=== PATIENT | female | born 1990 | race Caucasian/White ===

== ENCOUNTER 2017-01-20 12:44 | Emergency (ER) | payer OTHER ==
[~2017-01-20 12:44] MED LIST: HYDR-971 PO; ONDA4TAB10 PO; PNV1TABL25 PO
[2017-01-20 12:46] VITALS: BP 115/68
[2017-01-20] MEDS ORDERED: ACETAMINOPHEN 500 MG TABLET PO ONE (13:15)
[2017-01-20] MEDS ORDERED: CYCLOBENZAPRINE 10 MG TABLET. PO ONE (13:15)
--- NOTE | 2017-01-20 17:36 | ED.ADGEN ---
Past History Past Medical History: No Pertinent History Past Surgical History: Alcohol Use: None Drug Use: None Adult General Chief Complaint Chief Complaint Right flank pain HPI HPI Patient is a 26-year-old male presents with persistent right flank pain for the past 10 days. Patient was seen in the emergency department 7 days ago for the same. At that time she underwent an extensive evaluation including CT abdomen pelvis which was normal, and pelvic ultrasound showed good blood flow to both ovaries and right ovarian cyst. Patient denies increased urinary frequency urgency, abdominal pain or tenderness. Pain is worse with palpation in trunk rotation. No other acute symptoms or complaints. Patient has not followed up with her PCP. Review of Systems Review of Systems ROS as per HPI. Current Medications Current Medications Current Medications Medications (Trade) Dose Ordered Sig/Sancho Start Time Stop Time Status Last Admin Dose Admin Acetaminophen (Tylenol) 500 mg 1X ONCE 01/20/17 13:15 01/20/17 13:22 DC 01/20/17 13:18 500 MG Cyclobenzaprine HCl (Flexeril) 10 mg 1X ONCE 01/20/17 13:15 01/20/17 13:22 DC 01/20/17 13:18 10 MG Allergies Allergies Allergies Coded Allergies Type Severity Reaction Last Updated Verified adhesive Allergy Intermediate 07/02/16 Yes coconut oil Allergy Intermediate Rash 07/02/16 Yes Physical Exam Physical Exam Constitutional: Well developed, well nourished, no acute distress, non-toxic appearance. HENT: Normocephalic, atraumatic, bilateral external ears normal, oropharynx moist, no oral exudates, nose normal. Eyes: PERRLA, EOMI, conjunctiva normal, no discharge. Abdomen: Bowel sounds normal, soft, no tenderness. Skin: Warm, dry, no erythema, no rash. Back: No midline tenderness or CVA tenderness. Right lateral lumbar paravertebral tenderness, reproduces with palpation, trunk rotation Extremities: No tenderness, no cyanosis, no clubbing, ROM intact, no edema. Neurologic: Alert and oriented X 3, normal motor function, normal sensory function, no focal deficits noted. Psychologic: Affect normal, judgement normal, mood normal. Current Patient Data Vital Signs Vital Signs Date Time Temp Pulse Resp B/P Pulse Ox O2 Delivery O2 Flow Rate FiO2 01/20/17 12:46 98.0 84 18 96 Room Air EKG EKG [] Radiology/Procedures Radiology/Procedures [] Impressions: Right flank pain Course & Med Decision Making Course & Med Decision Making Pertinent Labs and Imaging studies reviewed. (See chart for details) [ReView of labs, studies, exam was consistent with musculoskeletal back pain. Recommend PCP follow-up with supportive care.] Final Impression Final Impression [1. Right flank pain] Problems: Dragon Disclaimer Dragon Disclaimer This electronic medical record was generated, in whole or in part, using a voice recognition dictation system. PIERCE LYONS DO Jan 20, 2017 17:36
== END 2017-01-20 13:21 | disposition home or self-care (01) ==
LOC: ER 12:44
DX: R10.9 Unspecified abdominal pain (principal); M54.89 Other dorsalgia; Z88.8 Allergy status to other drugs, medicaments and biological substances; Z91.048 Other nonmedicinal substance allergy status
CPT/HCPCS: 99283

== ENCOUNTER → 2017-02-09 | Outpatient (CLI) | payer OTHER ==
[2017-01-20 12:46] VITALS: BP 115/68
--- NOTE | 2017-02-09 11:10 | RAD ---
Transabdominal and endovaginal pelvic ultrasound History: Follow-up right ovarian cyst. Comparison: Ultrasound pelvis 12/19/2016. Technique: Transabdominal imaging was performed to evaluate optimally the uterine fundus. Endovaginal imaging was performed to evaluate optimally the endometrial stripe and lower uterine segment. Findings: Transabdominal imaging: The uterus measures 8.9 cm in length. Uterus has an unremarkable appearance. The endometrial stripe measures 3 mm, within normal limits. Right ovary measures 3.6 x 2.6 x 3.2 cm and demonstrates dominant cyst/follicle measuring 2.5 cm in maximum dimension (previously 3.6 cm). Left ovary measures 1.8 x 1.5 x 2.2 cm and is unremarkable. No adnexal masses are seen. Both ovaries demonstrate normal vascular flow by Doppler interrogation and are without evidence of torsion. Endovaginal imaging: The uterus measures 7.3 cm in length. Uterus has an unremarkable appearance. The endometrial stripe measures 5 mm, within normal limits. Right ovary measures 3.3 x 3.2 x 3.2 cm and demonstrates dominant cyst measuring 3.1 cm with mild amount of hemorrhage product. Left ovary is not seen with transabdominal imaging. No adnexal masses are seen. Impression: 1. Interval reduction in size of small left hemorrhagic functional ovarian cyst.
== END | disposition home or self-care (01) ==
LOC: US 09:25
DX: N83.201 Unspecified ovarian cyst, right side (principal); R10.31 Right lower quadrant pain
CPT/HCPCS: 76830; 76856

== ENCOUNTER 2017-04-05 11:53 | Emergency (ER) | payer OTHER ==
[~2017-04-05] VITALS: Ht 160 cm; Wt 95.3 kg
[2017-04-05 12:26] LABS: BILIRUBIN,URINE NEG (NEG); CLARITY,URINE HAZY; COLOR,URINE YELLOW; GLUCOSE,URINE NEG (NEG)
--- NOTE | 2017-04-05 12:26 | ED.ADGEN ---
Past History Past Medical History: No Pertinent History Past Surgical History: Alcohol Use: None Drug Use: None Adult General HPI HPI Patient is a 26-year-old woman, history of a , who presents to the emergency department with a complaint of nausea, vomiting and abdominal cramping intermittently over the past week. Patient states that she is experiencing nearly constant nausea, with emesis with most things that she eats or drinks. She states that she is also having cramping abdominal pain in the lower abdomen. Denies any diarrhea, states her last bowel was yesterday and it was normal. No blood or bile in emesis. Patient denies any upper abdominal discomfort. Denies any sick contacts or exposures, any injuries, no fevers, no chills, no flank pain, no complaints, no similar symptoms previously. She has not tried any medications at home for the symptoms. Is concerned that she might possibly be , is 6 months , baby is bottle fed. Patient' s and child are present with her in the emergency department. Review of Systems Review of Systems Constitutional: Denies fever or chills [] Eyes: Denies change in visual acuity, redness, or eye pain [] HENT: Denies nasal congestion or sore throat [] Respiratory: Denies cough or shortness of breath [] Cardiovascular: No additional information not addressed in HPI [] GI: Denies bloody stools or diarrhea, complaining of cramping lower quadrant abdominal pain, associated with nausea and vomiting. [] : Denies dysuria or hematuria [] Musculoskeletal: Denies back pain or joint pain [] Integument: Denies rash or skin lesions [] Neurologic: Denies headache, focal weakness or sensory changes [] Endocrine: Denies polyuria or polydipsia [] Current Medications Current Medications Current Medications Medications (Trade) Dose Ordered Sig/Sancho Start Time Stop Time Status Last Admin Dose Admin Ketorolac Tromethamine (Toradol) 10 mg 1X ONCE 04/05/17 12:45 04/05/17 12:46 DC 04/05/17 12:50 10 MG Ondansetron HCl (Zofran) 4 mg 1X ONCE 04/05/17 12:45 04/05/17 12:46 DC 04/05/17 12:38 4 MG Sodium Chloride 1,000 ml @ 1,000 mls/hr Q1H 04/05/17 12:45 04/05/17 13:44 04/05/17 12:39 1,000 MLS/HR Allergies Allergies Allergies Coded Allergies Type Severity Reaction Last Updated Verified adhesive Allergy Intermediate 07/02/16 Yes coconut oil Allergy Intermediate Rash 07/02/16 Yes Physical Exam Physical Exam Constitutional: Well developed, well nourished, no acute distress, non-toxic appearance. [] HENT: Normocephalic, atraumatic, bilateral external ears normal, oropharynx moist, no oral exudates, nose normal. [] Eyes: PERRLA, EOMI, conjunctiva normal, no discharge. [] Neck: Normal range of motion, no tenderness, supple, no stridor. [] Cardiovascular:Heart rate regular rhythm, no murmur, S1, S2, no rubs or gallops. [] Lungs & Thorax: Bilateral breath sounds clear to auscultation, no wheezing, rhonchi, rales. No chest wall tenderness or crepitus. [] Abdomen: Bowel sounds normal, soft, obese, mild tenderness to palpation in lower abdominal region, left and right side, and suprapubic, no tenderness at McBurney's point, no upper abdominal tenderness to palpation, no rebound, rigidity, no guarding, no masses, no pulsatile masses. [] Skin: Warm, dry, no erythema, no rash. [] Back: No tenderness, no CVA tenderness. [] Extremities: No tenderness, no cyanosis, no clubbing, ROM intact, no edema. [] Neurologic: Alert and oriented X 3, normal motor function, normal sensory function, no focal deficits noted. [] Psychologic: Affect normal, judgement normal, mood normal. [] Current Patient Data Vital Signs Vital Signs Date Time Temp Pulse Resp B/P (MAP) Pulse Ox O2 Delivery O2 Flow Rate FiO2 04/05/17 12:03 98.4 78 17 100 Room Air Lab Results Laboratory Tests Test 04/05/17 12:10 04/05/17 12:35 Urine Collection Type Unknown Urine Color Yellow Urine Clarity Hazy Urine pH 7.0 Urine Specific [place] 1.020 Urine Protein Trace (NEG-TRACE) Urine Glucose (UA) Neg mg/dL (NEG) Urine Ketones (Stick) Neg mg/dL (NEG) Urine Blood Trace (NEG) Urine Nitrite Neg (NEG) Urine Bilirubin Neg (NEG) Urine Urobilinogen Dipstick 0.2 mg/dL (0.2 mg/dL) Urine Leukocyte Esterase Neg (NEG) Urine RBC 3-5 /HPF (0-2) Urine WBC 1-4 /HPF (0-4) Urine Squamous Epithelial Cells Many /LPF Urine Bacteria Mod /HPF (0-FEW) Urine Hyaline Casts Occ /HPF Urine Mucus Mod /LPF White Blood Count 8.2 x10^3/uL (4.0-11.0) Red Blood Count 4.58 x10^6/uL (3.50-5.40) Hemoglobin 12.5 g/dL (12.0-15.5) Hematocrit 38.6 % (36.0-47.0) Mean Corpuscular Volume 84 fL (79-100) Mean Corpuscular Hemoglobin 27 pg (25-35) Mean Corpuscular Hemoglobin Concent 33 g/dL (31-37) Red Cell Distribution Width 14.5 % (11.5-14.5) Platelet Count 276 x10^3/uL (140-400) Neutrophils (%) (Auto) 59 % (31-73) Lymphocytes (%) (Auto) 29 % (24-48) Monocytes (%) (Auto) 10 % (0-9) H Eosinophils (%) (Auto) 1 % (0-3) Basophils (%) (Auto) 0 % (0-3) Neutrophils # (Auto) 4.8 x10^3uL (1.8-7.7) Lymphocytes # (Auto) 2.3 x10^3/uL (1.0-4.8) Monocytes # (Auto) 0.8 x10^3/uL (0.0-1.1) Eosinophils # (Auto) 0.1 x10^3/uL (0.0-0.7) Basophils # (Auto) 0.0 x10^3/uL (0.0-0.2) Sodium Level 143 mmol/L (136-145) Potassium Level 4.4 mmol/L (3.5-5.1) Chloride Level 107 mmol/L (98-107) Carbon Dioxide Level 27 mmol/L (21-32) Anion Gap 9 (6-14) Blood Urea Nitrogen 11 mg/dL (7-20) Creatinine 0.8 mg/dL (0.6-1.0) Estimated GFR (Cockcroft-Gault) 86.0 BUN/Creatinine Ratio 14 (6-20) Glucose Level 86 mg/dL (70-99) Calcium Level 8.8 mg/dL (8.5-10.1) Total Bilirubin 0.3 mg/dL (0.2-1.0) Aspartate Amino Transferase (AST) 15 U/L (15-37) Alanine Aminotransferase (ALT) 21 U/L (14-59) Alkaline Phosphatase 70 U/L (46-116) Total Protein 7.9 g/dL (6.4-8.2) Albumin 3.5 g/dL (3.4-5.0) Albumin/Globulin Ratio 0.8 (1.0-1.7) L Lipase 180 U/L (73-393) EKG EKG Not indicated. [] Radiology/Procedures Radiology/Procedures [][address] [address] IMAGING REPORT Signed PATIENT: ANDRES ORANTES ACCOUNT: [id number] : 1990 LOCATION: ER AGE: 26 SEX: F EXAM STATUS: REG ER ORD. PHYSICIAN: REILLY DOLL DO REASON: abd pain/n/v PROCEDURE: ACUTE ABDOMEN SERIES Three-view acute abdominal series. History: Nausea and vomiting, double pain 3 views were taken for acute abdominal series. Lungs are clear. Heart is normal in size. There is no effusion. There is no free air on the upright view of the abdomen or abnormal air-fluid levels. There is slight scoliosis. There is no bowel obstruction. There are no abnormal calcifications. Impression: 1. No bowel obstruction or acute finding noted in the abdomen. 2. No acute infiltrates. DICTATED AND SIGNED BY: MIGUELINA PINEDA MD DATE: 04/05/17 1300 CC: ARMANDO VILLALOBOS; REILLY DOLL DO ~ Course & Med Decision Making Course & Med Decision Making Pertinent Labs and Imaging studies reviewed. (See chart for details) Patient's hCG negative in the emergency department. Abdomen is soft, minimally tender, nondistended with active bowel sounds. Patient received IV fluids, and Zofran in the emergency department, along with Toradol, with improvement of symptoms. No vomiting in the ED. Obstruction series reveals no evidence of obstruction or other concerning findings, laboratory studies are unremarkable. I did discuss the signs and patient at bedside, reiterated the patient may be experiencing a viral illness. We did discuss dietary recommendations, patient states this point she is eating ice cream and some other foods without issue, I recommend avoiding ice cream, and trying more bland foods, and reiterated the importance of staying well-hydrated. Patient is given prescription for Zofran and for Bentyl, discussed follow-up with her primary care provider symptoms persist for the next 48 hours, and concerning symptoms that would prompt immediate return to the emergency department for additional evaluation. Patient voiced understanding and agreement with plan as stated, discharged home in stable condition with prescriptions and instructions with plan as above. Final Impression Final Impression [] Problems: Dragon Disclaimer Dragon Disclaimer This electronic medical record was generated, in whole or in part, using a voice recognition dictation system. Departure: Impression: Primary Impression: Nausea and vomiting Additional Impression: Abdominal pain Disposition: 01 HOME, SELF-CARE Condition: STABLE Scripts Dicyclomine Hcl (BENTYL) 10 Mg Capsule 10 MG PO QIDAFTMEAL Y for PAIN, #20 CAP Prov: REILLY DOLL DO 04/05/17 Ondansetron Hcl (ZOFRAN) 4 Mg Tablet 1 TAB PO PRN Q6-8HRS, #12 TAB Prov: REILLY DOLL DO 04/05/17 REILLY DOLL DO April 05, 2017 12:26
[2017-04-05 12:27] LABS: BACTERIA,URINE MOD /HPF (0-FEW); NITRITE,URINE NEG (NEG); UROBILINOGEN,URINE 0.2 mg/dL (0.2 mg/dL)
[2017-04-05 12:28] LABS: HYALINE CASTS, URINE OCC /HPF; SQUAMOUS EPITHELIAL CELL,UR MANY /LPF
[2017-04-05] MEDS ORDERED: ONDANSETRON PF 4 MG/2 ML VIAL. IV ONE (12:45)
[2017-04-05] MEDS ORDERED: KETOROLAC 15 MG/ML VIAL. IV ONE (12:45)
[2017-04-05] MEDS ORDERED: IV NORMAL SALINE 1,000ML 1,000 ML IV SCH (12:45)
[2017-04-05 12:53] LABS: BASO % 0 % (0-3); EOS # 0.1 x10^3/uL (0.0-0.7); EOS % 1 % (0-3); HEMATOCRIT 38.6 % (36.0-47.0); HEMOGLOBIN 12.5 g/dL (12.0-15.5); LYMPH # 2.3 x10^3/uL (1.0-4.8); LYMPH % 29 % (24-48); MEAN CORPUSCULAR HEMOGLOBIN 27 pg (25-35); MEAN CORPUSCULAR HGB CONC 33 g/dL (31-37); MEAN CORPUSCULAR VOLUME 84 fL (79-100); MONO # 0.8 x10^3/uL (0.0-1.1); MONO % 10 % (0-9); NEUT # 4.8 x10^3uL (1.8-7.7); NEUT % 59 % (31-73); PLATELET COUNT 276 x10^3/uL (140-400); RED BLOOD COUNT 4.58 x10^6/uL (3.50-5.40); RED CELL DISTRIBUTION WIDTH 14.5 % (11.5-14.5); WHITE BLOOD COUNT 8.2 x10^3/uL (4.0-11.0)
[2017-04-05 13:03] LABS: ALBUMIN 3.5 g/dL (3.4-5.0); ALBUMIN/GLOBULIN RATIO 0.8 (1.0-1.7); CALCIUM 8.8 mg/dL (8.5-10.1); CREATININE 0.8 mg/dL (0.6-1.0); POTASSIUM 4.4 mmol/L (3.5-5.1); TOTAL BILIRUBIN 0.3 mg/dL (0.2-1.0); TOTAL PROTEIN 7.9 g/dL (6.4-8.2)
--- NOTE | 2017-04-05 13:05 | RAD ---
Three-view acute abdominal series. History: Nausea and vomiting, double pain 3 views were taken for acute abdominal series. Lungs are clear. Heart is normal in size. There is no effusion. There is no free air on the upright view of the abdomen or abnormal air-fluid levels. There is slight scoliosis. There is no bowel obstruction. There are no abnormal calcifications. Impression: 1. No bowel obstruction or acute finding noted in the abdomen. 2. No acute infiltrates.
[2017-04-05] MEDS ORDERED: ONDA4TAB7 PO (13:09)
[2017-04-05] MEDS ORDERED: DICY10CA53 PO (13:09)
[2017-04-05 13:24] VITALS: BP 115/74
== END 2017-04-05 13:25 | disposition home or self-care (01) ==
LOC: ER 11:53
DX: R10.30 Lower abdominal pain, unspecified (principal); R11.2 Nausea with vomiting, unspecified; Z91.048 Other nonmedicinal substance allergy status; Z98.890 Other specified postprocedural states; Z88.8 Allergy status to other drugs, medicaments and biological substances
CPT/HCPCS: 36415; 74022; 80053; 81001; 83690; 84703; 85027; 96361; 96374; 96375; 99285; J1885; J2405; 81025; J7030

== ENCOUNTER 2017-07-16 14:45 | Emergency (ER) | payer OTHER ==
[~2017-07-16] VITALS: Ht 167.6 cm; Wt 100.2 kg
[~2017-07-16 14:45] MED LIST changes: +DICY10CA53 PO; +ONDA4TAB7 PO
[2017-07-16] MEDS ORDERED: fentaNYL PF 100 MCG/2 ML VIAL IV PRN (15:45)
[2017-07-16] MEDS ORDERED: IV NORMAL SALINE 1,000ML 1,000 ML IV SCH (16:00)
[2017-07-16] MEDS ORDERED: ONDANSETRON PF 4 MG/2 ML VIAL. IV ONE (16:00)
[2017-07-16 16:02] LABS: BASO % 0 % (0-3); EOS # 0.1 x10^3/uL (0.0-0.7); EOS % 1 % (0-3); HEMOGLOBIN 13.1 g/dL (12.0-15.5); LYMPH # 2.5 x10^3/uL (1.0-4.8); LYMPH % 28 % (24-48); MEAN CORPUSCULAR HEMOGLOBIN 28 pg (25-35); MEAN CORPUSCULAR HGB CONC 34 g/dL (31-37); MEAN CORPUSCULAR VOLUME 84 fL (79-100); MONO % 11 % (0-9); NEUT # 5.3 x10^3uL (1.8-7.7); NEUT % 60 % (31-73); PLATELET COUNT 261 x10^3/uL (140-400); RED BLOOD COUNT 4.64 x10^6/uL (3.50-5.40); RED CELL DISTRIBUTION WIDTH 14.6 % (11.5-14.5); WHITE BLOOD COUNT 8.9 x10^3/uL (4.0-11.0)
[2017-07-16 16:05] LABS: BACTERIA,URINE MOD /HPF (0-FEW); BILIRUBIN,URINE NEG (NEG); CLARITY,URINE CLOUDY; COLOR,URINE YELLOW; GLUCOSE,URINE NEG (NEG); NITRITE,URINE NEG (NEG); RBC,URINE 0 /HPF (0-2); UROBILINOGEN,URINE 0.2 mg/dL (0.2 mg/dL); WBC,URINE OCC /HPF (0-4)
[2017-07-16 16:06] LABS: SPERM,URINE PRESENT /HPF; SQUAMOUS EPITHELIAL CELL,UR MOD /LPF
[2017-07-16] MEDS ORDERED: IOHEXOL 300 MG/ML 75 ML VIAL. IV ONE (16:15)
[2017-07-16 16:17] LABS: ALBUMIN 3.4 g/dL (3.4-5.0); ALBUMIN/GLOBULIN RATIO 0.8 (1.0-1.7); CALCIUM 8.7 mg/dL (8.5-10.1); CREATININE 0.9 mg/dL (0.6-1.0); GFR 75.1; TOTAL BILIRUBIN 0.2 mg/dL (0.2-1.0); TOTAL PROTEIN 7.9 g/dL (6.4-8.2)
--- NOTE | 2017-07-16 16:19 | PHYS DOC ---
Past History Past Medical History: No Pertinent History Past Surgical History: Alcohol Use: None Drug Use: None Adult General Chief Complaint Chief Complaint: FLANK PAIN HPI HPI Patient is a 26 year old female who presents with complaint of left-sided abdominal pain. Patient states that she has been having intermittent symptoms of abdominal pain over the past 6-7 months in the affected area. Patient states however over the past month she has had near constant symptoms of sharp left- sided lower abdominal pain radiating towards her back. Patient states she's had associated nausea with her symptoms. The patient became very nauseous and had an episode of vomiting in the emergency department. Patient denies any associated fevers or shortness of breath. Patient rates her pain currently as 8 out of 10. Patient states that her symptoms worsen with movement or with lifting. The patient also admits over the past week she has started to notice what appears to be blood in her stool. Patient states that it was heavier week ago but states that she is noticed much smaller amounts of blood in her stool over the past day. Patient denies any history of similar symptoms. Review of Systems Review of Systems Constitutional: Denies fever or chills [] Eyes: Denies change in visual acuity, redness, or eye pain [] HENT: Denies nasal congestion or sore throat [] Respiratory: Denies cough or shortness of breath [] Cardiovascular: Denies chest pain or edema[] GI: Abdominal pain, nausea, vomiting, bloody stools [] : Denies dysuria or hematuria [] Musculoskeletal: Denies back pain or joint pain [] Integument: Denies rash or skin lesions [] Neurologic: Denies headache, focal weakness or sensory changes [] Current Medications Current Medications Current Medications Medications (Trade) Dose Ordered Sig/[facility] Start Time Stop Time Status Last Admin Dose Admin Fentanyl Citrate (Fentanyl 2ml Vial) 50 mcg PRN Q15MIN PRN 07/16/17 15:45 07/17/17 15:44 07/16/17 15:50 50 MCG Iohexol (Omnipaque 300 Mg/ml) 75 ml 1X ONCE 07/16/17 16:15 07/16/17 16:16 Ondansetron HCl (Zofran) 4 mg 1X ONCE 07/16/17 16:00 07/16/17 16:01 DC Sodium Chloride 1,000 ml @ 1,000 mls/hr Q1H 07/16/17 16:00 07/16/17 16:59 07/16/17 15:48 1,000 MLS/HR Allergies Allergies Allergies Coded Allergies Type Severity Reaction Last Updated Verified adhesive Allergy Intermediate 07/02/16 Yes coconut oil Allergy Intermediate Rash 07/02/16 Yes Physical Exam Physical Exam Constitutional: Alert, obese, afebrile, appears in moderate discomfort. [] HENT: Normocephalic, atraumatic, bilateral external ears normal, oropharynx moist, no oral exudates, nose normal. [] Eyes: PERRLA, EOMI, conjunctiva normal, no discharge. [] Neck: Normal range of motion, no tenderness, supple, no stridor. [] Cardiovascular:Heart rate regular rhythm, no murmur [] Lungs & Thorax: Bilateral breath sounds clear to auscultation [] Abdomen: Bowel sounds normal, soft, left lower quadrant tenderness to palpation with guarding, no rebound tenderness, no masses, no pulsatile masses. Rectal: Normal external exam, nontender during exam, brown colored stool with no visualized gross blood[] Skin: Warm, dry, no erythema, no rash. [] Back: No midline tenderness, left CVA tenderness present. [] Extremities: No tenderness, no cyanosis, no clubbing, ROM intact, no edema. [] Neurologic: Alert and oriented X 3, normal motor function, normal sensory function, no focal deficits noted. [] Current Patient Data Vital Signs Vital Signs Date Time Temp Pulse Resp B/P (MAP) Pulse Ox O2 Delivery O2 Flow Rate FiO2 07/16/17 15:50 18 99 Room Air 07/16/17 15:07 97.9 97 Lab Results Laboratory Tests Test 07/16/17 15:15 07/16/17 15:37 Urine Collection Type Void Urine Color Yellow Urine Clarity Cloudy Urine pH 7.0 Urine Specific [place] 1.020 Urine Protein Neg (NEG-TRACE) Urine Glucose (UA) Neg mg/dL (NEG) Urine Ketones (Stick) Neg mg/dL (NEG) Urine Blood Neg (NEG) Urine Nitrite Neg (NEG) Urine Bilirubin Neg (NEG) Urine Urobilinogen Dipstick 0.2 mg/dL (0.2 mg/dL) Urine Leukocyte Esterase Neg (NEG) Urine RBC 0 /HPF (0-2) Urine WBC Occ /HPF (0-4) Urine Squamous Epithelial Cells Mod /LPF Urine Bacteria Mod /HPF (0-FEW) Urine Sperm Present /HPF White Blood Count 8.9 x10^3/uL (4.0-11.0) Red Blood Count 4.64 x10^6/uL (3.50-5.40) Hemoglobin 13.1 g/dL (12.0-15.5) Hematocrit 39.0 % (36.0-47.0) Mean Corpuscular Volume 84 fL (79-100) Mean Corpuscular Hemoglobin 28 pg (25-35) Mean Corpuscular Hemoglobin Concent 34 g/dL (31-37) Red Cell Distribution Width 14.6 % (11.5-14.5) H Platelet Count 261 x10^3/uL (140-400) Neutrophils (%) (Auto) 60 % (31-73) Lymphocytes (%) (Auto) 28 % (24-48) Monocytes (%) (Auto) 11 % (0-9) H Eosinophils (%) (Auto) 1 % (0-3) Basophils (%) (Auto) 0 % (0-3) Neutrophils # (Auto) 5.3 x10^3uL (1.8-7.7) Lymphocytes # (Auto) 2.5 x10^3/uL (1.0-4.8) Monocytes # (Auto) 1.0 x10^3/uL (0.0-1.1) Eosinophils # (Auto) 0.1 x10^3/uL (0.0-0.7) Basophils # (Auto) 0.0 x10^3/uL (0.0-0.2) EKG EKG Not performed[] Radiology/Procedures Radiology/[place] [address] IMAGING REPORT Signed PATIENT: ANDRES ORANTES ACCOUNT: [id number] : 1990 LOCATION: ER AGE: 26 SEX: F EXAM STATUS: REG ER ORD. PHYSICIAN: PHILL PIERRE MD REASON: left lower quadrant abdominal pain PROCEDURE: CT ABD PELV W/ IV CONTRST ONLY CT abdomen/pelvis with IV contrast 07/16/2017 at 1616 hours Indication: Left lower quadrant abdominal pain. Comparison: CT abdomen/pelvis 01/13/2017 Technique: Multiple axial CT images of the abdomen and pelvis were obtained after the administration of 75 mL Omnipaque 300 intravenously. Coronal and sagittal reformats are provided. Findings: Lung bases are clear. Heart is normal in size. The liver, spleen, bilateral adrenal glands, and pancreas are within normal limits. Gallbladder is present without adjacent inflammatory changes. Abdominal aorta is normal in course and caliber. There are no pathologically enlarged lymph nodes in the abdomen or pelvis. There is no free fluid within the abdomen or pelvis. There is no free intraperitoneal air. Kidneys enhance symmetrically. No renal calculi are identified. No suspicious renal mass. No hydronephrosis. Small large bowel are normal in caliber. A normal appendix is visualized. There is a cystic lesion in the left adnexa measuring 4.4 x 3.1 x 3.8 cm. The uterus is grossly normal. Urinary bladder is within normal limits. No suspicious osseous lesions are identified. Impression: There is a new cystic lesion left adnexa measuring 4.4 x 3.1 x 3.8 cm. Further evaluation with pelvic ultrasound may be of benefit given left lower quadrant abdominal pain to ensure perfusion to the left ovary. PQRS Compliance Statement: One or more of the following individualized dose reduction techniques were utilized for this examination: 1. Automated exposure control 2. Adjustment of the mA and/or kV according to patient size 3. Use of iterative reconstruction technique DICTATED AND SIGNED BY: NATE BRITT MD DATE: 07/16/17 8229 CC: ARMANDO VILLALOBOS; PHILL PIERRE MD ~ [] Course & Med Decision Making Course & Med Decision Making Pertinent Labs and Imaging studies reviewed. (See chart for details) Patient was started on IV fluids, fentanyl, and Zofran. CT imaging showed a large left adnexal cyst likely due to ovarian source. The patient underwent ultrasound imaging in the emergency department and results are pending at time of sign out. Care of patient was signed out to Dr. Valdes at 1750. Pt. feeling better, reviewed US septated 4 x 3 cm ovarian cyst with flow. Cyst felt to be physiologic - see formal report. Patient follow-up primary care. Patient return if any concerns. Stay clear fluid diet tonight and tomorrow. . Tylenol and Ibuprofen for pain. Must follow up. Possible repeat US and Pt. needs MANAGER NEWS eval. of Ovary cyst. Alternate diagnosis discussed such as cancer , torsion of ovary ect. 1930- Lucio Rogers Disclaimer Ken Disclaimer This chart was dictated in whole or in part using Voice Recognition software in a busy, high-work load, and often noisy Emergency Department environment. It may contain unintended and wholly unrecognized errors or omissions. Departure Departure: Impression: Primary Impression: Abdominal pain Additional Impression: Left ovarian cyst Referrals: ARMANDO VILLALOBOS (PCP) Problem Qualifiers Primary Impression: Abdominal pain Abdominal location: left lower quadrant Qualified Codes: R10.32 - Left lower quadrant pain PHILL PIERRE MD Jul 16, 2017 16:19 JONATHAN VALDES MD Jul 16, 2017 19:26
[2017-07-16 16:20] LABS: FECAL OB PT NEGATIVE (NEG)
--- NOTE | 2017-07-16 16:54 | RAD ---
CT abdomen/pelvis with IV contrast 07/16/2017 at 1616 hours Indication: Left lower quadrant abdominal pain. Comparison: CT abdomen/pelvis 01/13/2017 Technique: Multiple axial CT images of the abdomen and pelvis were obtained after the administration of 75 mL Omnipaque 300 intravenously. Coronal and sagittal reformats are provided. Findings: Lung bases are clear. Heart is normal in size. The liver, spleen, bilateral adrenal glands, and pancreas are within normal limits. Gallbladder is present without adjacent inflammatory changes. Abdominal aorta is normal in course and caliber. There are no pathologically enlarged lymph nodes in the abdomen or pelvis. There is no free fluid within the abdomen or pelvis. There is no free intraperitoneal air. Kidneys enhance symmetrically. No renal calculi are identified. No suspicious renal mass. No hydronephrosis. Small large bowel are normal in caliber. A normal appendix is visualized. There is a cystic lesion in the left adnexa measuring 4.4 x 3.1 x 3.8 cm. The uterus is grossly normal. Urinary bladder is within normal limits. No suspicious osseous lesions are identified. Impression: There is a new cystic lesion left adnexa measuring 4.4 x 3.1 x 3.8 cm. Further evaluation with pelvic ultrasound may be of benefit given left lower quadrant abdominal pain to ensure perfusion to the left ovary. PQRS Compliance Statement: One or more of the following individualized dose reduction techniques were utilized for this examination: 1. Automated exposure control 2. Adjustment of the mA and/or kV according to patient size 3. Use of iterative reconstruction technique
--- NOTE | 2017-07-16 17:59 | RAD ---
Exam performed: Pelvic ultrasound. Indication: Irregular periods, left lower quadrant pain for several months Date of Service: 07/16/2017. Comparison: CT abdomen and pelvis from earlier today Technique: Transabdominal and transvaginal Findings: The uterus measures 8.7 x 5.2 x 3.4 cm. The endometrial stripe is barely perceptible. There is tiny amount of fluid in the endocervical canal Bilateral ovaries are normal. The right ovary measures 2.5 x 1.6 x 2.8 cm.The left ovary measures 4.7 x 5.0 x 3.5 cm . There is a 4.0 x 3.2 x 4.6 cm cyst in the left ovary with a thin septation. Symmetric vascularity to both ovaries. There is no free fluid in the posterior cul-de-sac. Impression: 1. Septated 4.0 x 3.2 x 4.6 cm cyst in the left ovary likely physiological. Otherwise unremarkable study. Electronically signed by: Luz Maria Oro MD (07/16/2017 5:56 PM) [facility]
[2017-07-16 18:05] VITALS: BP 120/70
[2017-07-16] MEDS ORDERED: MORPHINE SULFATE 10 MG/ML SYRINGE. SQ ONE (19:45)
== END 2017-07-16 20:00 | disposition home or self-care (01) ==
LOC: ER 14:45
DX: N83.202 Unspecified ovarian cyst, left side (principal); Z98.890 Other specified postprocedural states; Z88.8 Allergy status to other drugs, medicaments and biological substances
CPT/HCPCS: 36415; 74177; 76830; 76856; 80053; 81001; 81025; 82274; 83690; 85025; 87086; 96361; 96372; 96374; 96375; 99285; J2270; J2405; J3010; Q9967; J7030

== ENCOUNTER 2017-09-09 18:16 | Emergency (ER) | payer OTHER ==
[~2017-09-09] VITALS: Ht 160 cm; Wt 96.2 kg
[2017-09-09] MEDS ORDERED: KETOROLAC 30 MG/ML VIAL. IV ONE (19:15)
[2017-09-09] MEDS ORDERED: IV NORMAL SALINE 1,000ML 1,000 ML IV SCH (19:20)
[2017-09-09] MEDS ORDERED: ONDANSETRON PF 4 MG/2 ML VIAL. ONE (19:32)
[2017-09-09] MEDS ORDERED: ONDANSETRON PF 4 MG/2 ML VIAL. IV ONE (19:45)
[2017-09-09 19:54] LABS: BASO # 0.1 x10^3/uL (0.0-0.2); BASO % 1 % (0-3); EOS # 0.2 x10^3/uL (0.0-0.7); EOS % 2 % (0-3); HEMOGLOBIN 12.9 g/dL (12.0-15.5); LYMPH # 2.8 x10^3/uL (1.0-4.8); LYMPH % 30 % (24-48); MEAN CORPUSCULAR HEMOGLOBIN 29 pg (25-35); MEAN CORPUSCULAR HGB CONC 34 g/dL (31-37); MEAN CORPUSCULAR VOLUME 85 fL (79-100); MONO # 0.9 x10^3/uL (0.0-1.1); MONO % 9 % (0-9); NEUT # 5.5 x10^3uL (1.8-7.7); NEUT % 58 % (31-73); PLATELET COUNT 317 x10^3/uL (140-400); RED BLOOD COUNT 4.49 x10^6/uL (3.50-5.40); RED CELL DISTRIBUTION WIDTH 14.7 % (11.5-14.5); WHITE BLOOD COUNT 9.4 x10^3/uL (4.0-11.0)
[2017-09-09 20:11] LABS: ALBUMIN 3.4 g/dL (3.4-5.0); ALBUMIN/GLOBULIN RATIO 0.7 (1.0-1.7); CALCIUM 8.8 mg/dL (8.5-10.1); GFR 66.5; POTASSIUM 4.1 mmol/L (3.5-5.1); TOTAL BILIRUBIN 0.1 mg/dL (0.2-1.0)
[2017-09-09 20:14] LABS: BACTERIA,URINE 0 /HPF (0-FEW); BILIRUBIN,URINE NEG (NEG); CLARITY,URINE HAZY; COLOR,URINE YELLOW; GLUCOSE,URINE NEG (NEG); NITRITE,URINE NEG (NEG); RBC,URINE OCC /HPF (0-2); SQUAMOUS EPITHELIAL CELL,UR FEW /LPF; UROBILINOGEN,URINE 0.2 mg/dL (0.2 mg/dL); WBC,URINE RARE /HPF (0-4)
--- NOTE | 2017-09-09 20:59 | RAD ---
US PELVIS W/TV Clinical Indication: severe lt pain, prev lt ov cyst Comparison: Pelvic ultrasound July 16, 2017. TECHNIQUE: Real-time ultrasound imaging of the pelvis using transabdominal and transvaginal window is performed. Findings: Uterus measures 5.9 x 4.4 x 3.2 cm. No focal abnormality. The endometrial stripe is normal measuring 3 mm. The ovaries are symmetric in size. There is normal blood flow in the ovaries. There is a left ovary functional cyst measuring 2 x 1 x 1.3 cm. No pelvic free fluid is identified. No evidence of adnexal mass. IMPRESSION: 1. Normal blood flow in the ovaries. 2. No pelvic free fluid. Electronically signed by: Ricardo Kwok MD (09/09/2017 8:56 PM) [facility]
--- NOTE | 2017-09-09 21:10 | PHYS DOC ---
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 She says she was referred to a folder taper operator and saw them this past week, she is now scheduled to see gynecology/oncology this coming Wednesday. States that she used to take Percocet for this discomfort but has been advised to take ibuprofen. She says the pain increased dramatically earlier today so she was doubled over in pain and crying and that she called her folder taper operator who referred her to the emergency department. On arrival she is crying and doubled over complaining of left ovarian pain identical but worse to her presenting symptoms when her tumor was initially diagnosed. She denies any vaginal bleeding or discharge and further denies any bowel or bladder symptoms. No fever chills sweats or myalgias symptoms are worse with certain movements relieved with rest and pain medications. She is initially accompanied by a friend but her who is active duty to join her through the ED course and remained until discharge. On arrival her vital signs were stable states her last menstrual period was August 23, 2017. She denies any knowledge of ovarian or uterine cancer in her family. Timing/Duration: 4-6 hours, getting worse Severity: severe Modifying Factors: improves with medication, worse with movement, improves with rest Associated Symptoms: other Allergies: Coded Allergies: adhesive (Verified Allergy, Intermediate, 07/02/16) coconut oil (Verified Allergy, Intermediate, Rash, 07/02/16) Past Medical History Medical History: no pertinent history Surgical History: no surgical history ( section) Social History Smoker: non-smoker Alcohol: none Drugs: none Review of Systems Constitutional: denies chills, denies diaphoresis, denies fever, denies malaise Respiratory: denies cough, denies shortness of breath Cardiovascular: denies chest pain, denies palpitations Gastrointestinal: see HPI Genitourinary: see HPI Musculoskeletal: denies back pain, denies joint pain, denies joint swelling, denies neck pain Psychiatric/Neurological: denies headache, denies numbness, denies paresthesia Hematologic/Lymphatic: denies blood clots, denies easy bleeding, denies easy bruising Physical Exam General Appearance: moderate distress, obese Ear, Nose, Throat: hearing grossly normal, normal ENT inspection, normal pharynx Neck: non-tender, supple Respiratory: normal breath sounds, no respiratory distress Cardiovascular: normal peripheral pulses, regular rate, rhythm Gastrointestinal: normal bowel sounds, soft, other (exquisite left adnexal pain /discomfort with guarding no rebound, no palpable mass pelvic exam deferred) Rectal: deferred Back: no CVA tenderness, no vertebral tenderness Extremities: normal range of motion, non-tender, normal inspection Neurologic/Psychiatric: air bag curer II-XII nml as tested, no motor/sensory deficits, alert, oriented x 3 Skin: normal color, warm/dry Orders, Labs, Meds PATIENT: ANDRES ORANTES ACCOUNT: [id number] : 1990 LOCATION: ER AGE: 26 SEX: F EXAM STATUS: REG ER ORD. PHYSICIAN: HUSEYIN PANDA DO REASON: h/o L ovarian mass (US PMC last month) worsening pain PROCEDURE: US PELVIS W/TV US PELVIS W/TV Clinical Indication: severe lt pain, prev lt ov cyst Comparison: Pelvic ultrasound July 16, 2017. TECHNIQUE: Real-time ultrasound imaging of the pelvis using transabdominal and transvaginal window is performed. Findings: Uterus measures 5.9 x 4.4 x 3.2 cm. No focal abnormality. The endometrial stripe is normal measuring 3 mm. The ovaries are symmetric in size. There is normal blood flow in the ovaries. There is a left ovary functional cyst measuring 2 x 1 x 1.3 cm. No pelvic free fluid is identified. No evidence of adnexal mass. IMPRESSION: 1. Normal blood flow in the ovaries. 2. No pelvic free fluid. Electronically signed by: Ricardo Kwok MD (09/09/2017 8:56 PM) [facility] DICTATED AND SIGNED BY: RICARDO KWOK MD DATE: 09/09/172052 CC: ARMANDO VILLALOBOS; HUSEYIN PANDA DO ~ Labs and urine studies unremarkable Reevaluation finds the patient resting comfortably accompanied by her . Denies any current complaints and axis if she is confused at the negative findings on ultrasound. I reassured her however did advise her to follow-up with gynecology/oncology as scheduled on Wednesday. I discussed signs and symptoms to monitor for as well as indications for urgent return to the department. Her questions were answered she expressed agreement and understanding with the treatment plan. Departure Time of Disposition: 21:14 Disposition: 01 HOME, SELF-CARE Diagnosis: 2.1 cm left ovarian cyst Condition: GOOD Patient Instructions: Ovarian Cyst, [id number] Additional Instructions: No driving or operating machinery while sedated with medications. Aggressive hydration with Gatorade or water. [id number] stool softeners to avoid constipation caused by your pain medications. A Tylenol 3 starter pack has been dispensed to you tonight. Take 1-2 every 6 hours as needed for severe pain. [id number] ibuprofen for baseline discomfort. Follow-up at [place] tomorrow for recheck. Follow-up with [facility]/ONC specialist Wednesday as scheduled. Return to ED with new or changing symptoms. HUSEYIN PANDA DO Sep 09, 2017 21:10
[2017-09-09] MEDS ORDERED: ACETAMINOPHEN/CODEINE 300/30MG 4TABLET STARTPACK. PO ONE (21:30)
[2017-09-09 21:35] VITALS: BP 119/73
== END 2017-09-09 21:35 | disposition home or self-care (01) ==
LOC: ER 18:16
DX: N83.202 Unspecified ovarian cyst, left side (principal); Z98.890 Other specified postprocedural states; Z88.8 Allergy status to other drugs, medicaments and biological substances; Z91.048 Other nonmedicinal substance allergy status
CPT/HCPCS: 36415; 76830; 76856; 80053; 81001; 81025; 83690; 85025; 96361; 96374; 96375; 99285; J1885; J2405; J3010; J7030

== ENCOUNTER 2017-10-04 21:41 | Emergency (ER) | payer OTHER ==
[~2017-10-04] VITALS: Ht 160 cm; Wt 92.3 kg
--- NOTE | 2017-10-04 21:47 | ED.ADGEN ---
Past History Past Medical History: No Pertinent History Past Surgical History: Alcohol Use: None Drug Use: None Adult General Chief Complaint Chief Complaint ".. I feel like I am having chest pain.. It hurts here in the center.. all day.. It seems worse when I cough... or take a deep breath..." HPI HPI Patient is a 26 year old female who presents with above hx and complaints of central chest pain. Patient does seem to have a pleuritic component. Patient denies any history of trauma. Patient denies any previous cardiac history. Patient denies any history of coagulopathy or DVTs. Or pulmonary embolisms. Patient normally follows at [facility]. Patient does smoke. No recent travel. No specific ill contacts. No history of immunosuppression. Patient states she is very anxious and is under a lot emotional distress.. Review of Systems Review of Systems Constitutional: Denies fever or chills [] Eyes: Denies change in visual acuity, redness, or eye pain [] HENT: Denies nasal congestion or sore throat [] Respiratory: Complaints of chest pain pleuritic Cardiovascular: No additional information not addressed in HPI [] GI: Denies abdominal pain, nausea, vomiting, bloody stools or diarrhea [] : Denies dysuria or hematuria [] Musculoskeletal: Denies back pain or joint pain [] Integument: Denies rash or skin lesions [] Neurologic: Denies headache, focal weakness or sensory changes [] Endocrine: Denies polyuria or polydipsia [] All other systems were reviewed and found to be within normal limits, except as documented in this note. Family History Family History Noncontributory Current Medications Current Medications Current Medications Medications (Trade) Dose Ordered Sig/Sancho Start Time Stop Time Status Last Admin Dose Admin Aspirin (Children'S Aspirin) 324 mg 1X ONCE 10/04/17 22:30 10/04/17 22:31 DC Ketorolac Tromethamine (Toradol) 30 mg 1X ONCE 10/04/17 22:30 10/04/17 22:31 DC 10/04/17 22:23 30 MG Sodium Chloride 1,000 ml @ 1,000 mls/hr Q1H 10/04/17 22:30 10/04/17 23:30 DC 10/04/17 22:22 1,000 MLS/HR See nursing for home medications Allergies Allergies Allergies Coded Allergies Type Severity Reaction Last Updated Verified adhesive Allergy Intermediate 07/02/16 Yes coconut oil Allergy Intermediate Rash 07/02/16 Yes Physical Exam Physical Exam Constitutional: , well nourished, in acute emotional distress, non-toxic appearance. [] HENT: Normocephalic, atraumatic, bilateral external ears normal, oropharynx moist, no oral exudates, nose normal. [] Eyes: , conjunctiva normal, no discharge. [] Neck: Normal range of motion, no tenderness, supple, no stridor. [] Cardiovascular:Heart rate regular rhythm, no murmur [] Lungs & Thorax: Bilateral breath sounds equal at apexes with scattered wheezing auscultation [. Reproducible chest pain with deep breaths and cough. Abdomen: Bowel sounds normal, soft, no tenderness, no masses, no pulsatile masses. Old surgical scar Skin: Warm, dry, no erythema, no rash. [] Back: No tenderness, no CVA tenderness. [] Extremities: No tenderness, no cyanosis, no clubbing, ROM intact, no edema. No cording appreciated in legs Neurologic: Alert and oriented X 3, normal motor function, normal sensory function, no focal deficits noted. [] Psychologic: Affect very anxious, judgement normal, mood normal. [] Current Patient Data Lab Results Laboratory Tests Test 10/04/17 22:00 10/04/17 22:35 White Blood Count 8.9 x10^3/uL (4.0-11.0) Red Blood Count 4.34 x10^6/uL (3.50-5.40) Hemoglobin 12.6 g/dL (12.0-15.5) Hematocrit 37.1 % (36.0-47.0) Mean Corpuscular Volume 85 fL (79-100) Mean Corpuscular Hemoglobin 29 pg (25-35) Mean Corpuscular Hemoglobin Concent 34 g/dL (31-37) Red Cell Distribution Width 14.2 % (11.5-14.5) Platelet Count 277 x10^3/uL (140-400) Neutrophils (%) (Auto) 58 % (31-73) Lymphocytes (%) (Auto) 29 % (24-48) Monocytes (%) (Auto) 10 % (0-9) H Eosinophils (%) (Auto) 2 % (0-3) Basophils (%) (Auto) 1 % (0-3) Neutrophils # (Auto) 5.2 x10^3uL (1.8-7.7) Lymphocytes # (Auto) 2.6 x10^3/uL (1.0-4.8) Monocytes # (Auto) 0.9 x10^3/uL (0.0-1.1) Eosinophils # (Auto) 0.2 x10^3/uL (0.0-0.7) Basophils # (Auto) 0.1 x10^3/uL (0.0-0.2) Urine Collection Type Unknown Urine Color Yellow Urine Clarity Hazy Urine pH 7.0 Urine Specific [place] 1.015 Urine Protein Neg (NEG-TRACE) Urine Glucose (UA) Neg mg/dL (NEG) Urine Ketones (Stick) Neg mg/dL (NEG) Urine Blood Neg (NEG) Urine Nitrite Neg (NEG) Urine Bilirubin Neg (NEG) Urine Urobilinogen Dipstick 0.2 mg/dL (0.2 mg/dL) Urine Leukocyte Esterase Neg (NEG) Urine RBC Occ /HPF (0-2) Urine WBC 1-4 /HPF (0-4) Urine Squamous Epithelial Cells Mod /LPF Urine Amorphous Sediment Present /HPF Urine Bacteria 0 /HPF (0-FEW) Urine Mucus Slight /LPF Sodium Level 140 mmol/L (136-145) Potassium Level 4.1 mmol/L (3.5-5.1) Chloride Level 107 mmol/L (98-107) Carbon Dioxide Level 21 mmol/L (21-32) Anion Gap 12 (6-14) Blood Urea Nitrogen 12 mg/dL (7-20) Creatinine 0.7 mg/dL (0.6-1.0) Estimated GFR (Cockcroft-Gault) 100.4 Glucose Level 117 mg/dL (70-99) H Calcium Level 9.0 mg/dL (8.5-10.1) Magnesium Level 2.0 mg/dL (1.8-2.4) Total Bilirubin 0.2 mg/dL (0.2-1.0) Direct Bilirubin < 0.1 mg/dL (0.0-0.2) Aspartate Amino Transferase (AST) 22 U/L (15-37) Alanine Aminotransferase (ALT) 26 U/L (14-59) Alkaline Phosphatase 59 U/L (46-116) Creatine Kinase 70 U/L (26-192) Creatine Kinase MB (Mass) < 0.5 ng/mL (0.0-3.6) Creatine Kinase MB Relative Index 0.7 % (0-4) Troponin I Quantitative < 0.017 ng/mL (0-0.055) RF-Etn-X-Type Natriuretic Peptide 13 pg/mL (0-124) Total Protein 8.1 g/dL (6.4-8.2) Albumin 3.4 g/dL (3.4-5.0) Lipase 145 U/L (73-393) Urine Opiates Screen Neg (NEG) Urine Methadone Screen Neg (NEG) Urine Barbiturates Neg (NEG) Urine Phencyclidine Screen Neg (NEG) Urine Amphetamine/Methamphetamine Neg (NEG) Urine Benzodiazepines Screen Neg (NEG) Urine Cocaine Screen Neg (NEG) Urine Cannabinoids Screen Neg (NEG) Urine Ethyl Alcohol Neg (NEG) Prothrombin Time 10.1 SEC (9.4-11.4) Prothrombin Time INR 1.0 (0.9-1.1) PTT < 21 SEC (23-33) L D-Dimer (Pushpa) 0.37 mg/L (0.00-0.50) EKG EKG My interpretation of EKG shows a sinus rhythm at 84 bpm. No acute morphology. Repeat EKG at 2347 show sinus rhythm at 83 bpm with no acute morphology no acute interval changes.[] Radiology/Procedures Radiology/Procedures I interpretation of chest x-ray shows atelectasis, distended stomach, no large infiltrate or pneumothorax appreciated.[] Course & Med Decision Making Course & Med Decision Making Pertinent Labs and Imaging studies reviewed. (See chart for details). Daily ASA. Ibuprofen for pain. Follow up with Pérez. Out pt. stress testing. Push fluids. Stop smoking. [] Final Impression Final Impression 1. Chest Pain 2. Pleuritic chest pain 3. Viral syndrome- elevated monocyte count Problems: Dragon Disclaimer Dragon Disclaimer This electronic medical record was generated, in whole or in part, using a voice recognition dictation system. JONATHAN PHILLIPS MD Oct 04, 2017 21:47
[2017-10-04 22:27] LABS: BASO # 0.1 x10^3/uL (0.0-0.2); BASO % 1 % (0-3); EOS # 0.2 x10^3/uL (0.0-0.7); EOS % 2 % (0-3); HEMATOCRIT 37.1 % (36.0-47.0); HEMOGLOBIN 12.6 g/dL (12.0-15.5); LYMPH # 2.6 x10^3/uL (1.0-4.8); LYMPH % 29 % (24-48); MEAN CORPUSCULAR HEMOGLOBIN 29 pg (25-35); MEAN CORPUSCULAR HGB CONC 34 g/dL (31-37); MEAN CORPUSCULAR VOLUME 85 fL (79-100); MONO # 0.9 x10^3/uL (0.0-1.1); MONO % 10 % (0-9); NEUT # 5.2 x10^3uL (1.8-7.7); NEUT % 58 % (31-73); PLATELET COUNT 277 x10^3/uL (140-400); RED BLOOD COUNT 4.34 x10^6/uL (3.50-5.40); RED CELL DISTRIBUTION WIDTH 14.2 % (11.5-14.5); WHITE BLOOD COUNT 8.9 x10^3/uL (4.0-11.0)
[2017-10-04] MEDS ORDERED: ASPIRIN 81 MG TAB.CHEW PO ONE (22:30)
[2017-10-04] MEDS ORDERED: IV NORMAL SALINE 1,000ML 1,000 ML IV SCH (22:30)
[2017-10-04] MEDS ORDERED: KETOROLAC 30 MG/ML VIAL. IV ONE (22:30)
[2017-10-04 22:38] LABS: BARBITURATES NEG (NEG); BENZODIAZEPINES NEG (NEG); CANNABINOIDS NEG (NEG); COCAINE NEG (NEG); METHADONE NEG (NEG); OPIATES NEG (NEG); PHENCYCLIDINE NEG (NEG)
[2017-10-04 22:39] LABS: AMPHETAMINE/METHAMPHETAMINE NEG (NEG)
[2017-10-04 22:40] LABS: COLOR,URINE YELLOW
[2017-10-04 22:41] LABS: BACTERIA,URINE 0 /HPF (0-FEW); BILIRUBIN,URINE NEG (NEG); CLARITY,URINE HAZY; GLUCOSE,URINE NEG (NEG); NITRITE,URINE NEG (NEG); RBC,URINE OCC /HPF (0-2); SQUAMOUS EPITHELIAL CELL,UR MOD /LPF; UROBILINOGEN,URINE 0.2 mg/dL (0.2 mg/dL)
[2017-10-04 22:43] LABS: AMORPHOUS SEDIMENT,UR PRESENT /HPF
[2017-10-04 22:52] LABS: ALBUMIN 3.4 g/dL (3.4-5.0); ALK PHOS 59 U/L (46-116); ALT (SGPT) 26 U/L (14-59); ANION GAP 12 (6-14); AST (SGOT) 22 U/L (15-37); BLOOD UREA NITROGEN 12 mg/dL (7-20); CARBON DIOXIDE 21 mmol/L (21-32); CHLORIDE 107 mmol/L (98-107); CREATINE KINASE 70 U/L (26-192); CREATININE 0.7 mg/dL (0.6-1.0); DIRECT BILIRUBIN < 0.1 mg/dL (0.0-0.2); GFR 100.4; GLUCOSE 117 mg/dL (70-99); LIPASE 145 U/L (73-393); POTASSIUM 4.1 mmol/L (3.5-5.1); SODIUM 140 mmol/L (136-145); TOTAL BILIRUBIN 0.2 mg/dL (0.2-1.0); TOTAL PROTEIN 8.1 g/dL (6.4-8.2)
[2017-10-04] MEDS ORDERED: ASPI-630 PO (23:41)
[2017-10-04] MEDS ORDERED: IBUP400T18 PO (23:42)
[2017-10-05 00:05] VITALS: BP 139/72
--- NOTE | 2017-10-05 00:26 | EKG ---
[address] [address] Test Date: 2017-10-04 Test Time: 22:17:26 Pat Name: ANDRES ORANTES Department: Room: Gender: F Rn Practitioner: DUNCAN : 1990 Requested By: JONATHAN PHILLIPS Order Number: [id number] Reading MD: Weston Mccloud Measurements Intervals [place] Rate: 84 P: 27 HI: 148 QRS: 31 QRSD: 84 T: 18 QT: 350 QTc: 417 Interpretive Statements SINUS RHYTHM Electronically Signed On 10-11-2017 14:30:31 FREELANCE TRANSLATOR by Weston Mccloud
--- NOTE | 2017-10-05 00:29 | EKG ---
[address] [address] Test Date: 2017-10-04 Test Time: 23:47:16 Pat Name: ANDRES ORANTES Department: Room: Gender: F Car Inspection And Repair Manager: DUNCAN : 1990 Requested By: JONATHAN PHILLIPS Order Number: [id number] Reading MD: Weston Mccloud Measurements Intervals [place] Rate: 83 P: 28 AK: 150 QRS: 20 QRSD: 84 T: 22 QT: 358 QTc: 421 Interpretive Statements SINUS RHYTHM Electronically Signed On 10-11-2017 14:31:17 CUSTOMER DEVELOPMENT REPRESENTATIVE by Weston Mccloud
--- NOTE | 2017-10-05 07:22 | RAD ---
Chest x-ray Indication: Chest pain, short of breath Technique: PA and lateral views of chest Comparison: Previous study from 04/05/2017 Findings: Heart is top normal in size. Lungs are hypoinflated likely due to poor inspiratory effort. No pneumothorax or pleural effusion. No focal consolidation. Visualized bony thorax is within normal limits. Impression: No acute cardiopulmonary process.
== END 2017-10-05 00:35 | disposition home or self-care (01) ==
LOC: ER 21:41
DX: R07.81 Pleurodynia (principal); B34.9 Viral infection, unspecified; Z88.8 Allergy status to other drugs, medicaments and biological substances; Z91.018 Allergy to other foods
CPT/HCPCS: 36415; 71020; 80048; 80076; 80307; 81001; 81025; 82553; 83690; 83735; 83880; 84443; 84484; 85025; 85379; 85610; 85730; 93005; 96361; 96374; 99285; J1885; G0479; J7030

== ENCOUNTER 2017-11-22 13:48 | Emergency (ER) | payer OTHER ==
[~2017-11-22 13:48] MED LIST changes: +ASPI-630 PO; +IBUP400T18 PO
--- NOTE | 2017-11-22 14:29 | PHYS DOC ---
Past History Past Medical History: Anxiety Past Surgical History: Alcohol Use: None Drug Use: None Adult General Chief Complaint Chief Complaint: BACK PAIN OR INJURY [facility] HPI Patient is a 27 year old F who presents with bilateral low back pain that radiates to the abdomen. She denies pain radiating up and down her back. She describes the pain as dull shooting constant pain that is worse with movement. She describes the abdominal pain as "moving around". She states that the abdominal pain does not stay in one spot and is difficult to describe. She feels that it is different than her chronic abdominal pain which usually stays in one spot. She also has chronic back pain. She feels that her symptoms started today while she was standing in the kitchen. She had no injury. She has no numbness or tingling. She has no pain in her lower extremities bilaterally. She has no nausea or vomiting. She had a bowel movement this morning which was normal. She has no urinary symptoms. She has no other symptoms. She has no other exacerbating or alleviating factors. She is currently working with a pain management doctor Review of Systems Review of Systems Constitutional: Denies fever or chills [] Eyes: Denies change in visual acuity, redness, or eye pain [] HENT: Denies nasal congestion or sore throat [] Respiratory: Denies cough or shortness of breath [] Cardiovascular: No additional information not addressed in HPI [] GI: Denies abdominal pain, nausea, vomiting, bloody stools or diarrhea [] : Denies dysuria or hematuria [] Musculoskeletal: Negative except history of present illness Integument: Denies rash or skin lesions [] Neurologic: Denies headache, focal weakness or sensory changes [] Endocrine: Denies polyuria or polydipsia [] All other systems were reviewed and found to be within normal limits, except as documented in this note. Family History Family History No pertinent family medical history was reported Current Medications Current Medications Current medications were reviewed She denied having any prescriptions for narcotics or other pain medications other than [id number] medications however she was prescribed [place] 5/325 on 11/11/17 Allergies Allergies Allergies Coded Allergies Type Severity Reaction Last Updated Verified adhesive Allergy Intermediate 07/02/16 Yes coconut oil Allergy Intermediate Rash 07/02/16 Yes Physical Exam Physical Exam Constitutional: Well developed, well nourished, no acute distress, non-toxic appearance. [] HENT: Normocephalic, atraumatic, Eyes: EOMI, conjunctiva normal, no discharge. [] Neck: Normal range of motion, no tenderness, supple, no stridor. [] Cardiovascular:Heart rate regular rhythm, Lungs & Thorax: Bilateral breath sounds clear to auscultation [] Abdomen: Bowel sounds normal, soft, no tenderness, no masses, no pulsatile masses. [] Inconsistent exam, while auscultating the stethoscope was used to palpate and no pain was noted. During palpation at the same depth and pressure pain was noted. Carlyn was specifically asked and she stated there is no pain with auscultation however she states there was pain with palpation Skin: Warm, dry, no erythema, no rash. [] Back: Inconsistent exam, there was pain with light touch to the skin on the lumbar spine however no spasm was noted and deep palpation did not cause any significant change. She had normal range of motion of her back. She had no obvious bony tenderness. Extremities: No tenderness, no cyanosis, no clubbing, ROM intact, no edema. [] Neurologic: Alert and oriented X 3, normal motor function, normal sensory function, no focal deficits noted. [] Psychologic: Affect normal, judgement normal, mood normal. [] Current Patient Data Vital Signs Normal vital signs. Please review nursing documentation for specifics EKG EKG [] Radiology/Procedures Radiology/Procedures No imaging was indicated Course & Med Decision Making Course & Med Decision Making Pertinent Labs and Imaging studies reviewed. (See chart for details) Patient not only had an inconsistent exam but also denied having access to narcotics despite [facility] showing a prescription filled on 11/11/17. Her symptoms are most consistent with fibromyalgia or other abnormal pain syndromes. Dragon Disclaimer Dragon Disclaimer This electronic medical record was generated, in whole or in part, using a voice recognition dictation system. Departure Departure: Impression: Primary Impression: Back pain Disposition: 01 HOME, SELF-CARE Condition: STABLE Referrals: ARMANDO VILLALOBOS (PCP) Patient Instructions: Back Exercises Additional Instructions: Carlyn was seen in the emergency department for back pain. No emergency medical condition was found on history or physical exam. Her symptoms are most consistent with fibromyalgia versus other pain disorder. There is no signs of muscle or bony injury. Her pain was inconsistent with any intra-abdominal process. She was advised follow-up with her primary care doctor as soon as possible for further management of her pain. Problem Qualifiers Primary Impression: Back pain Back pain location: low back pain Chronicity: unspecified Back pain laterality: unspecified Sciatica presence: without sciatica Qualified Codes : M54.5 - Low back pain COLE HURLEY MD Nov 22, 2017 14:29
[2017-11-22 14:52] VITALS: BP 124/74
== END 2017-11-22 15:00 | disposition home or self-care (01) ==
LOC: ER 13:48
DX: G89.29 Other chronic pain (principal); M54.5 Low back pain; F41.9 Anxiety disorder, unspecified; Z88.8 Allergy status to other drugs, medicaments and biological substances; Z91.048 Other nonmedicinal substance allergy status
CPT/HCPCS: 99283

== ENCOUNTER 2018-05-23 18:53 | Emergency (ER) | payer OTHER ==
[~2018-05-23] VITALS: Ht 160 cm; Wt 92.3 kg
[2018-05-23 19:03] VITALS: BP 124/76
[2018-05-23] MEDS ORDERED: MECLIZINE 12.5 MG TABLET. PO ONE (19:30)
[2018-05-23] MEDS ORDERED: ONDANSETRON ODT 4 MG TAB.RAPDIS PO ONE (19:30)
[2018-05-23] MEDS ORDERED: ONDA4TAB10 SL (20:11)
[2018-05-23 20:25] LABS: BILIRUBIN,URINE NEG (NEG); CLARITY,URINE HAZY; COLOR,URINE YELLOW; GLUCOSE,URINE NEG (NEG)
[2018-05-23 20:26] LABS: NITRITE,URINE NEG (NEG); UROBILINOGEN,URINE 0.2 mg/dL (0.2 mg/dL)
--- NOTE | 2018-05-24 06:52 | ED.ADGEN ---
Past History Past Medical History: No Pertinent History Past Surgical History: No Surgical History Alcohol Use: None Drug Use: None Adult General Chief Complaint Chief Complaint Multiple medical complaints HPI HPI Patient is a 27-year-old female well-known to this facility presents with multiple medical complaints. Patient was washing her hair with peroxide and states she inhaled some fumes which caused her to hyperventilate. Patient reports dizziness lightheadedness, nausea and vomiting. Patient states she had multiple episodes are to ED arrival. Denies hitting her head, headache, neck pain. No chest pain palpitations, wheezing. No history of asthma. No other acute symptoms or complaints. Patient does have significant history of anxiety. Menstrual period 2 weeks ago. [] Review of Systems Review of Systems ROS as per HPI Current Medications Current Medications Current Medications Medications (Trade) Dose Ordered Sig/Sancho Start Time Stop Time Status Last Admin Dose Admin Meclizine HCl (Antivert) 25 mg 1X ONCE 05/23/18 19:30 05/23/18 19:31 DC 05/23/18 19:48 25 MG Ondansetron HCl (Zofran Odt) 4 mg 1X ONCE 05/23/18 19:30 05/23/18 19:31 DC 05/23/18 19:48 4 MG Allergies Allergies Allergies Coded Allergies Type Severity Reaction Last Updated Verified adhesive Allergy Intermediate 07/02/16 Yes coconut oil Allergy Intermediate Rash 07/02/16 Yes Physical Exam Physical Exam Constitutional: Well developed, well nourished, no acute distress, non-toxic appearance. [] HENT: Normocephalic, atraumatic, bilateral external ears normal, oropharynx moist, nose normal. [] Eyes: PERRLA, EOMI, conjunctiva normal, no discharge. [] Neck: Normal range of motion. [] Cardiovascular:Heart rate regular rhythm, no murmur. [] Lungs & Thorax: Bilateral breath sounds clear to auscultation. [] Abdomen: Bowel sounds normal, soft, no tenderness. [] Skin: Warm, dry. [] Back: No tenderness. [] Extremities: No tenderness. [] Neurologic: Alert and oriented X 3, normal motor function, normal sensory function, no focal deficits noted. [] Psychologic: Affect normal, judgement normal, mood normal. [] Current Patient Data Vital Signs Vital Signs Date Time Temp Pulse Resp B/P (MAP) Pulse Ox O2 Delivery O2 Flow Rate FiO2 05/23/18 19:03 98.4 79 16 94 Room Air Lab Results Laboratory Tests Test 05/23/18 19:45 Urine Collection Type Unknown Urine Color Yellow Urine Clarity Hazy Urine pH 7.5 Urine Specific Adkins 1.015 Urine Protein Neg (NEG-TRACE) Urine Glucose (UA) Neg mg/dL (NEG) Urine Ketones (Stick) Neg mg/dL (NEG) Urine Blood Neg (NEG) Urine Nitrite Neg (NEG) Urine Bilirubin Neg (NEG) Urine Urobilinogen Dipstick 0.2 mg/dL (0.2 mg/dL) Urine Leukocyte Esterase Neg (NEG) EKG EKG [EKG: ] Radiology/Procedures Radiology/Procedures [] Course & Med Decision Making Course & Med Decision Making Pertinent Labs and Imaging studies reviewed. (See chart for details) [Sx improved with treatment. Patient requesting discharge home.] Final Impression Final Impression [1. Dizziness] Dragon Disclaimer Dragon Disclaimer This electronic medical record was generated, in whole or in part, using a voice recognition dictation system. PIERCE LYONS DO May 24, 2018 06:52
== END 2018-05-23 20:16 | disposition home or self-care (01) ==
LOC: ER 18:53
DX: R42 Dizziness and giddiness (principal); R11.2 Nausea with vomiting, unspecified; R06.4 Hyperventilation; Z88.8 Allergy status to other drugs, medicaments and biological substances
CPT/HCPCS: 81003; 81025; 82947; 99283; J8597; Q0162

== ENCOUNTER 2018-09-14 21:07 | Emergency (ER) | payer OTHER ==
[~2018-09-14] VITALS: Ht 160 cm; Wt 101.6 kg
[~2018-09-14 21:07] MED LIST changes: +ONDA4TAB10 SL
[2018-09-14] MEDS ORDERED: KETOROLAC 60 MG/2 ML VIAL. IM ONE (21:30)
[2018-09-14] MEDS ORDERED: CYCLOBENZAPRINE 10 MG TABLET. PO ONE (21:30)
--- NOTE | 2018-09-14 22:02 | RAD ---
EXAM: Cervical spine CT without contrast. HISTORY: Fall. TECHNIQUE: Computed tomographic images of the cervical spine were obtained without contrast. Multiplanar reformatting was performed. *One or more of the following individualized dose reduction techniques were utilized for this examination: 1. Automated exposure control. 2. Adjustment of the mA and/or kV according to patient size. 3. Use of iterative reconstruction technique. COMPARISON: None. FINDINGS: There is slight reversal cervical lordosis. There is minimal anterolisthesis C2 on C3, within this nodule limits. The vertebral bodies are normal in height and the disc spaces are preserved. There is no suspicious osseous lesion. There is no fracture. The skull base and posterior fossa are unremarkable. There is no significant foraminal or central canal stenosis. IMPRESSION: No acute osseous finding or significant cervical foraminal or central canal stenosis. Electronically signed by: Krupa Caballero MD (09/14/2018 9:59 PM) [facility]
--- NOTE | 2018-09-14 22:04 | RAD ---
EXAM: Lumbar spine CT without contrast. HISTORY: Fall. Back pain. TECHNIQUE: Computed tomographic images of the lumbar spine were obtained without contrast. Multiplanar reformatting was performed. *One or more of the following individualized dose reduction techniques were utilized for this examination: 1. Automated exposure control. 2. Adjustment of the mA and/or kV according to patient size. 3. Use of iterative reconstruction technique. COMPARISON: None. FINDINGS: There is no listhesis. The vertebral mir are normal in height. There are few tiny endplate Schmorl's nodes. There is no suspicious osseous lesion. There is no fracture. There is minimal facet arthropathy at multiple levels. There are mild disc bulges at multiple levels. There is mild bilateral foraminal stenosis at L4-L5 and mild right foraminal stenosis at L5-S1. IMPRESSION: No acute osseous finding. Electronically signed by: Krupa Caballero MD (09/14/2018 10:01 PM) [facility]
[2018-09-14] MEDS ORDERED: MELO7.5T5 PO (22:44)
[2018-09-14] MEDS ORDERED: CYCL-331 PO (22:44)
--- NOTE | 2018-09-14 22:50 | PHYS DOC ---
Adult General Chief Complaint Chief Complaint back pain HPI HPI 27 years old female presented to the emergency department with back pain after a fall at work complaining of pain in the lower lumbar area and cervical spine no restriction of movement she is able to ambulate in her own Review of Systems Review of Systems Constitutional: Denies fever or chills [] Eyes: Denies change in visual acuity, redness, or eye pain [] HENT: Denies nasal congestion or sore throat [] Respiratory: Denies cough or shortness of breath [] Cardiovascular: No additional information not addressed in HPI [] GI: Denies abdominal pain, nausea, vomiting, bloody stools or diarrhea [] : Denies dysuria or hematuria [] Musculoskeletal: Denies joint pain [] Integument: Denies rash or skin lesions [] Neurologic: Denies headache, focal weakness or sensory changes [] Endocrine: Denies polyuria or polydipsia [] All other systems were reviewed and found to be within normal limits, except as documented in this note. Current Medications Current Medications Current Medications Medications (Trade) Dose Ordered Sig/[facility] Start Time Stop Time Status Last Admin Dose Admin Cyclobenzaprine HCl (Flexeril) 10 mg 1X ONCE 09/14/18 21:30 09/14/18 21:32 DC 09/14/18 21:33 10 MG Ketorolac Tromethamine (Toradol Im) 60 mg 1X ONCE 09/14/18 21:30 09/14/18 21:32 DC 09/14/18 21:34 60 MG Allergies Allergies Allergies Coded Allergies Type Severity Reaction Last Updated Verified adhesive Allergy Intermediate 07/02/16 Yes coconut oil Allergy Intermediate Rash 07/02/16 Yes Physical Exam Physical Exam Constitutional: Well developed, well nourished, no acute distress, non-toxic appearance. [] HENT: Normocephalic, atraumatic, bilateral external ears normal, oropharynx moist, no oral exudates, nose normal. [] Eyes: PERRLA, EOMI, conjunctiva normal, no discharge. [] Neck: Normal range of motion, no tenderness, supple, no stridor. [] Cardiovascular:Heart rate regular rhythm, no murmur [] Lungs & Thorax: Bilateral breath sounds clear to auscultation [] Abdomen: Bowel sounds normal, soft, no tenderness, no masses, no pulsatile masses. [] Skin: Warm, dry, no erythema, no rash. [] Back:back tenderness, no CVA tenderness. [] Extremities: No tenderness, no cyanosis, no clubbing, ROM intact, no edema. [] Neurologic: Alert and oriented X 3, normal motor function, normal sensory function, no focal deficits noted. [] Psychologic: Affect normal, judgement normal, mood normal. [] Current Patient Data Vital Signs Vital Signs Date Time Temp Pulse Resp B/P (MAP) Pulse Ox O2 Delivery O2 Flow Rate FiO2 09/14/18 21:12 99.0 EKG EKG [] Radiology/Procedures Radiology/Procedures [] Course & Med Decision Making Course & Med Decision Making Pertinent Labs and Imaging studies reviewed. (See chart for details) [] Final Impression Final Impression [] Problems: (1) Contusion Qualifiers: Qualified Codes: S30.0XXA - Contusion of lower back and pelvis, initial encounter Dragon Disclaimer Dragon Disclaimer This electronic medical record was generated, in whole or in part, using a voice recognition dictation system. CRUZITO MIRZA MD Sep 14, 2018 22:49
[2018-09-14 22:55] VITALS: BP 125/61
== END 2018-09-14 23:01 | disposition home or self-care (01) ==
LOC: ER 21:07
DX: S30.0XXA Contusion of lower back and pelvis, initial encounter (principal); Z88.8 Allergy status to other drugs, medicaments and biological substances; Z91.048 Other nonmedicinal substance allergy status; W18.30XA Fall on same level, unspecified, initial encounter; Y93.89 Activity, other specified; Y92.89 Other specified places as the place of occurrence of the external cause; Y99.0 Civilian activity done for income or pay
CPT/HCPCS: 72125; 72131; 96372; 99284; J1885